=== PATIENT | male | born 1960 | race Two or more races ===

== ENCOUNTER 2024-07-28 21:01 | Emergency (ER) | payer OTHER ==
[~2024-07-28] VITALS: Ht 177.8 cm; Wt 102.5 kg
[2024-07-28] MEDS ORDERED: LISINOPRIL40 MG PO (21:30)
[2024-07-28] MEDS ORDERED: ELIQUIS5 MG PO (21:30)
[2024-07-28] MEDS ORDERED: JARDIANCE10 MG PO (21:30)
[2024-07-28] MEDS ORDERED: METOPROLOL SUCC50 MG PO (21:30)
[2024-07-28] MEDS ORDERED: FUROSEMIDE40 MG PO (21:31)
[2024-07-28] MEDS ORDERED: IPRATROPIUM/ALBUTEROL SULFATE 3 ML AMPUL.NEB IH SCH (23:00)
[2024-07-28 23:01] LABS: HEMATOCRIT 38.7 % (39.0-48.0); HEMOGLOBIN 13.2 g/dL (13-16.00); MEAN CELL VOLUME 97.2 fL (80.0-100.00); PLATELET COUNT 151 K/uL (150-450); RED BLOOD COUNT 3.98 M/uL (4.00-6.00); RED CELL DISTRIBUTION WIDTH 13.9 % (11.5-14.5)
[2024-07-28 23:18] LABS: CALCIUM 9.4 mg/dL (8.5-10.1); CREATININE SERUM 1.39 mg/dL (0.70-1.30); GFR 51.28; POTASSIUM 4.68 mEq/L (3.5-5.1)
[2024-07-29 00:50] LABS: ABG PH 7.394 (7.35-7.45); ABG PO2 87.5 mmHg (80-100); ABG pCO2 37.6 mmHg (35-45); BICARBONATE 22.4 mmol/l (23-25); SaO2 96.5 %; Tco2 23.6 mmol/l
[2024-07-29] MEDS ORDERED: FUROsemide 40 MG/4 ML VIAL IV ONE (01:00)
[2024-07-29] MEDS ORDERED: FUROsemide 40 MG/4 ML VIAL ONE (01:12)
[2024-07-29 02:20] LABS: INFLUENZA A AG NEGATIVE (NEGATIVE)
[2024-07-29 02:21] LABS: COVID-19 AG NEGATIVE (NEGATIVE)
[2024-07-29 06:53] LABS: allen test SATISFACTORY; mode ROOM AIR; o2 21 %; puncture site RADIAL LEFT
== END 2024-07-29 05:46 | disposition home or self-care (01) ==
LOC: ER 21:01
PROVIDERS: General Practice
DX: R53.81 Other malaise (principal); R60.0 Localized edema; I50.9 Heart failure, unspecified; R05.9 Cough, unspecified; Z20.822 Contact with and (suspected) exposure to COVID-19; Z88.0 Allergy status to penicillin
CPT/HCPCS: 36415; 71046; 82803; 93041; 96365; 99283; J1940